=== PATIENT | female | born 1965 | race Caucasian/White ===

== ENCOUNTER 2022-12-12 07:37 | Outpatient (OUT) | payer BC, SELFPAY ==
--- NOTE | 2022-12-12 | NM_ITS ---
Patient: HUMA JADE Exam Date: 12/12/2022 : 1965 Gender:F Ordering : DENISHA ESPINAL Admission #: [id number] Family : Non-Staff Physician Order #: [id number] CLICK HERE TO VIEW EXAM RADIOLOGY REPORT PROCEDURE: NM TERRANCE PERF SPECT REST STR COMPARISON: None. INDICATIONS: CHEST PAIN TECHNIQUE: Exam Description: Stress/Rest one day protocol gated SPECT Rest Imagin.0 mCi Tc-99m Cardiolite IV on 12/12/2022 Stress Imaging 31.7 mCi Tc-99m Cardiolite IV on 12/12/2022 Exercise Protocol: Callum Heart Rate (bpm): Rest: 62 Max: 142 PMHR: 86 Blood Pressure: Rest: 152/88 Max: 196/92 Exercise Time: Minutes: 8 Seconds: 15 Stage Reached: Stage: 3 Mets 10.10 Symptoms: Rest and peak stress ECG findings were pending and the exercise portion of the study was pending per attending physician Dr. NAM . For more details please see separate cardiac stress test report. FINDINGS: QUALITY OF STUDY: Excellent. PERFUSION DEFECT: LOCATION: Mid-anterior. Apical anterior. SIZE: Small (1-2 segments). SEVERITY: Mild. TYPE: Persistent. WALL MOTION: Normal. LV SIZE: Normal. 86 mL. TID / TCD: None; 0.9 LVEF: Normal. Calculated EF 65%. SUMMARY: Myocardial perfusion imaging study has ABNORMAL findings. CONCLUSION: 1. Small area of mildly decreased uptake in the anterior wall stable on rest and stress images, I favor breast attenuation artifact 2. No reversible ischemia 3. Pending exercise test Dictated by: Ilir Smiley MD on 12/12/2022 at 13:59 Approved by: Ilir Smiley MD on 12/12/2022 at 14:01
--- NOTE | 2022-12-12 | PCN_ITS ---
CARDIAC STRESS TEST Requesting Physician:? Dr. Coyne Procedure Date:? 12/12/2022 PERFORMING PROVIDER:? Adelfo Keene M.D. INDICATION:? Hypertension, CAD. STRESS TEST TYPE:? Treadmill exercise stress test with nuclear myocardial perfusion imaging. Resting EKG:? Normal sinus rhythm with non-specific T-wave abnormality. Protocol:? Callum Resting heart rate:? 62 Peak heart rate:? 142 Peak maximal heart rate percentage:? 86% Resting blood pressure:? 152/88 Peak blood pressure:? 186/92 Exercise time:? 8 minutes and 15 seconds Stage reached:? 3 Maximum METS:? 10.10 Reason for termination:? Target heart rate achieved. Heart rate recovery:? Normal. Chronotropic response index:? 0.78, normal. Functional capacity:? Good. Blood pressure response:? Normal. Symptoms:? Peripheral muscles. Arrhythmias:? Occasional PVCs. CONCLUSIONS: 1.? Baseline EKG is abnormal.? Normal sinus with non-specific T-wave abnormality. 2.? Treadmill exercise stress test is abnormal.? Patient has greater than [address] depression in 2, 3, AVF, with T-wave inversion at peak maximal exercise. 3.? Lal treadmill score is < > MTDD
== END 2022-12-12 07:38 | disposition home or self-care (01) ==
LOC: NM 07:37
PROVIDERS: Visit Provider Internal Medicine Cardiovascular Disease
DX: R07.9 Chest pain, unspecified (principal)
CPT/HCPCS: 78452; 93017; A9500